=== PATIENT | male | born 1950 | race Two or more races ===

== ENCOUNTER 2024-10-10 08:48 | Outpatient (CLI) | payer OTHER ==
[2024-10-10 09:39] LABS: BASO % 0.2 % (0.1-1.2); EOS # 0.08 (0.04-0.54); EOS % 1.7 % (0.7-7.0); HEMATOCRIT 38.5 % (40.1-51.0); HEMOGLOBIN 13.2 g/dL (13.7-17.5); LYMPH # 1.09 (1.18-3.74); LYMPH % 23.5 % (19.3-53.1); MEAN CORPUSCULAR HEMOGLOBIN 29.9 pg (25.6-32.2); MONO # 0.59 (0.24-0.82); NEUT # 2.85 (1.56-6.13); NEUT % 61.7 % (34.0-71.1); PLATELET COUNT 172 K/uL (163-369); RED BLOOD COUNT 4.42 M/uL (4.63-6.08); RED CELL DISTRIBUTION WIDTH 12.2 % (11.6-14.4)
[2024-10-10 09:45] LABS: PH,URINE 5.5 (5.0-8.0); URINE APPEARANCE Clear; URINE BILIRRUBIN Negative (NEGATIVE); URINE BLOOD Negative; URINE COLOR Yellow; URINE KETONE Negative (NEGATIVE); URINE LEUKOCYTE Negative; URINE NITRATE Negative; URINE PROTEIN Negative (NEGATIVE); URINE UROBILINOGEN 0.2 E.U./dl
[2024-10-10 09:47] LABS: URINE BACTERIA 6.1 uL (0.0-1933); URINE EPITHELIAL CELLS 2.3 uL (0.0-38.8)
[2024-10-10 09:48] LABS: MONO % 12.7 % (4.7-12.5)
[2024-10-10 10:30] LABS: URINE CAST 0.14 uL (0.0-1.40); URINE GLUCOSE 250 MG/DL (NEGATIVE); URINE RBC 1.6 uL (0.0-20.8)
[2024-10-10 10:34] LABS: CALCIUM 8.9 mg/dL (8.5-10.1); CHOL HDL RATIO 2.9 (0-5.0); CREATININE SERUM 1.62 mg/dL (0.70-1.30); FERRITIN 45.2 NG/ML (26-388); GFR 41.75; PHOSPHOROUS 2.9 mg/dL (2.5-4.9); POTASSIUM 5.11 mEq/L (3.5-5.1)
[2024-10-10 10:44] LABS: URIC ACID 5.9 mg/dL (3.5-8.5)
== END 2024-10-10 08:49 | disposition home or self-care (01) ==
LOC: LAB 08:48
DX: N18.9 Chronic kidney disease, unspecified (principal); I12.9 Hypertensive chronic kidney disease with stage 1 through stage 4 chronic kidney disease, or unspecified chronic kidney disease; E11.22 Type 2 diabetes mellitus with diabetic chronic kidney disease; R80.1 Persistent proteinuria, unspecified; E55.9 Vitamin D deficiency, unspecified; E78.2 Mixed hyperlipidemia; E79.0 Hyperuricemia without signs of inflammatory arthritis and tophaceous disease; D64.9 Anemia, unspecified

== ENCOUNTER 2024-10-10 09:26 | Outpatient (CLI) | payer OTHER | END 2024-10-10 09:33 | disposition home or self-care (01) | LOC: SONOGRAMA 09:26 | DX: N18.31 Chronic kidney disease, stage 3a (principal) ==